=== PATIENT | male | born 1950 | race Caucasian/White ===

== ENCOUNTER 2017-09-11 16:43 | Inpatient (IN) | payer MEDICARE, OTHER ==
[~2017-09-11] VITALS: Ht 180.3 cm; Wt 100.5 kg
[2017-09-11 19:07] LABS: BASOPHILS % (AUTO) 0.2 % (0-1); EOSINOPHILS # (AUTO) 0.2 X10'3 (0-0.9); EOSINOPHILS % (AUTO) 1.6 % (0-6); HEMATOCRIT 39.1 % (42.0-52.0); HEMOGLOBIN 12.3 g/dl (14.0-17.9); LYMPHOCYTES # (AUTO) 0.8 X10'3 (1.1-4.8); LYMPHOCYTES % (AUTO) 6.5 % (21-51); MEAN CORPUSCULAR HEMOGLOBIN 28.1 PG (27.0-31.0); MEAN CORPUSCULAR HGB CONC 31.4 % (33.0-36.5); MEAN CORPUSCULAR VOLUME 89.7 FL (78-98); MEAN PLATELET VOLUME 8.4 FL (7.4-10.4); MONOCYTES # (AUTO) 1.1 X10'3 (0-0.9); MONOCYTES % (AUTO) 8.8 % (2-12); NEUTROPHILS % (AUTO) 82.9 % (42-75); PLATELET COUNT 259 X10'3 (140-440); RED BLOOD COUNT 4.36 X10'6 (4.70-6.10); RED CELL DISTRIBUTION WIDTH 15.6 % (11.5-14.5)
[2017-09-11 19:17] LABS: INR 1.4 INR; PARTIAL THROMBOPLASTIN TIME 27 SECONDS (22-32); PROTHROMBIN TIME 13.9 SECONDS (9.0-12.0)
[2017-09-11 19:25] LABS: ALANINE AMINOTRANSFERASE 22 U/L (12-78); ALBUMIN 3.2 G/DL (3.4-5.0); ALBUMIN/GLOBULIN RATIO 0.8 (1.1-1.5); ALKALINE PHOSPHATASE 79 IU/L (46-116); ANION GAP 5 (8-16); ASPARTATE AMINO TRANSFERASE 20 U/L (10-37); BILIRUBIN,TOTAL 1.3 MG/DL (0.1-1.0); BLOOD UREA NITROGEN 48 MG/DL (7-18); BUN/CREATININE RATIO 35.6 (5.4-32.0); CALCIUM 9.5 MG/DL (8.5-10.1); CHLORIDE 98 MMOL/L (99-107); CREATININE 1.35 MG/DL (0.60-1.10); GLUCOSE 149 MG/DL (70-104); POTASSIUM 4.2 MMOL/L (3.5-5.1); SODIUM 143 MMOL/L (135-145); TOTAL CARBON DIOXIDE 39.8 MMOL/L (24-32); TOTAL PROTEIN 7.1 G/DL (6.4-8.2); eGFR 53 ML/MIN
[2017-09-11] MEDS ORDERED: furosemide 40mg/4ml inj IV ONE (20:05)
[2017-09-11] MEDS ORDERED: methylPREDNISolone sod succ 125mg/2ml vial IV ONE (20:05)
[2017-09-11] MEDS ORDERED: ipratropium/albuterol 3ml nebule NEB ONE (20:05)
[2017-09-11 20:49] LABS: CLARITY,URINE CLEAR (Clear); COLOR,URINE STRAW (Yellow); GLUCOSE, URINE NEGATIVE (Neg); KETONES,URINE NEGATIVE (Neg); LEUKOCYTE ESTERASE ,URINE NEGATIVE (Neg); NITRITES, URINE NEGATIVE (Neg); OCCULT BLOOD,URINE TRACE-INTACT (Neg); PROTEIN,URINE NEGATIVE (Neg); UROBILINOGEN,URINE 0.2 E.U/dL (0.2-1.0)
[2017-09-11 20:51] LABS: UA COLLECTION TYPE CLN CATCH MIDSTREAM
[2017-09-11 20:57] LABS: BACTERIA,URINE NONE SEEN /HPF (Neg); MUCUS STRANDS NONE SEEN /LPF (Neg); RBC,URINE 0-2 /HPF (0-2); SQUAMOUS EPITHELIAL CELL,UR NONE SEEN /LPF (FEW); WBC,URINE NONE SEEN /HPF (0-4)
[2017-09-11] MEDS ORDERED: furosemide 10 MG/1 ML 10ml inj IV ONE (21:00)
[2017-09-11] MEDS ORDERED: temazepam 15mg capsule PO PRN (21:00)
[2017-09-11] MEDS ORDERED: sodium phosphate inj. 30 MMOL in dextrose 5%-water 250 ML IV PRN (21:50)
[2017-09-11] MEDS ORDERED: HYDROmorphone 1 mg/ml syringe IV PRN ×2 (21:50)
[2017-09-11] MEDS ORDERED: sodium phosphate inj. 15 MMOL in dextrose 5%-water 150 ML IV PRN (21:50)
[2017-09-11] MEDS ORDERED: mag hydrox/Alum hydrox/simeth 30ml oral suspension PO PRN (21:50)
[2017-09-11] MEDS ORDERED: acetaminophen 325mg tablet PO PRN (21:50)
[2017-09-11] MEDS ORDERED: Neutra Phos packet PO PRN (21:50)
[2017-09-11] MEDS ORDERED: dextrose 50%-water 50ml dispensing syringe IV PRN ×2 (21:50)
[2017-09-11] MEDS ORDERED: diphenhydrAMINE 25mg capsule PO PRN (21:50)
[2017-09-11] MEDS ORDERED: MESSAGE TO PHARMACY PO ONE (21:50)
[2017-09-11] MEDS ORDERED: acetaminophen 650mg rectal suppository RC PRN (21:50)
[2017-09-11] MEDS ORDERED: metoclopramide 5 mg/ml inj IV PRN (21:50)
[2017-09-11] MEDS ORDERED: magnesium hydroxide 30ml (MOM) UD suspension PO PRN (21:50)
[2017-09-11] MEDS ORDERED: magnesium 4gm in 100ml NS 100 ML IV PRN (21:50)
[2017-09-11] MEDS ORDERED: diphenhydrAMINE 50 mg/ml inj IV PRN (21:50)
[2017-09-11] MEDS ORDERED: HYDROcodone/acetaminophen 5mg/325mg tablet PO PRN (21:50)
[2017-09-11] MEDS ORDERED: dextrose ORAL solution 15 GM/59 ML bottle PO PRN (21:50)
[2017-09-11] MEDS ORDERED: magnesium 2GM in 50ml NS 50 ML IV PRN (21:50)
[2017-09-11] MEDS ORDERED: glucagon, human recombinant 1mg kit SUBCUT PRN (21:50)
[2017-09-11 22:46] LABS: HEMOGLOBIN A1C 6.6 % (4.5-6.2)
[2017-09-11 23:03] LABS: ALBUMIN 3.3 G/DL (3.4-5.0); ANION GAP 6 (8-16); BLOOD UREA NITROGEN 47 MG/DL (7-18); BUN/CREATININE RATIO 37.6 (5.4-32.0); CALCIUM 9.5 MG/DL (8.5-10.1); CHLORIDE 98 MMOL/L (99-107); CREATININE 1.25 MG/DL (0.60-1.10); GLUCOSE 138 MG/DL (70-104); PHOSPHORUS 3.3 MG/DL (2.3-4.5); SODIUM 143 MMOL/L (135-145); TOTAL CARBON DIOXIDE 39.5 MMOL/L (24-32); eGFR 58 ML/MIN
[2017-09-12] MEDS: heparin, porcine 5000 units/ml vial SQ SCH ×4 (00:19→23:40)
[2017-09-12 05:15] LABS: BASOPHILS % (AUTO) 0 % (0-1); EOSINOPHILS # (AUTO) 0.1 X10'3 (0-0.9); EOSINOPHILS % (AUTO) 0.9 % (0-6); HEMATOCRIT 39.3 % (42.0-52.0); HEMOGLOBIN 12.2 g/dl (14.0-17.9); LYMPHOCYTES # (AUTO) 0.3 X10'3 (1.1-4.8); LYMPHOCYTES % (AUTO) 2.7 % (21-51); MEAN CORPUSCULAR HEMOGLOBIN 27.9 PG (27.0-31.0); MEAN CORPUSCULAR HGB CONC 31.1 % (33.0-36.5); MEAN CORPUSCULAR VOLUME 89.6 FL (78-98); MEAN PLATELET VOLUME 8.9 FL (7.4-10.4); MONOCYTES % (AUTO) 0.3 % (2-12); NEUTROPHILS # (AUTO) 10.9 X10'3 (1.8-7.7); NEUTROPHILS % (AUTO) 96.1 % (42-75); PLATELET COUNT 250 X10'3 (140-440); RED BLOOD COUNT 4.39 X10'6 (4.70-6.10); RED CELL DISTRIBUTION WIDTH 14.8 % (11.5-14.5); WHITE BLOOD COUNT 11.3 X10'3 (4.5-11.0)
[2017-09-12 05:47] LABS: ALANINE AMINOTRANSFERASE 14 U/L (12-78); ALBUMIN 3.1 G/DL (3.4-5.0); ALBUMIN/GLOBULIN RATIO 0.8 (1.1-1.5); ALKALINE PHOSPHATASE 75 IU/L (46-116); ANION GAP 7 (8-16); ASPARTATE AMINO TRANSFERASE 25 U/L (10-37); BILIRUBIN,TOTAL 1.3 MG/DL (0.1-1.0); BLOOD UREA NITROGEN 45 MG/DL (7-18); BUN/CREATININE RATIO 35.7 (5.4-32.0); CALCIUM 9.3 MG/DL (8.5-10.1); CHLORIDE 97 MMOL/L (99-107); CREATININE 1.26 MG/DL (0.60-1.10); GLUCOSE 190 MG/DL (70-104); MAGNESIUM 1.6 MG/DL (1.5-2.4); PHOSPHORUS 4.1 MG/DL (2.3-4.5); POTASSIUM 4.1 MMOL/L (3.5-5.1); SODIUM 141 MMOL/L (135-145); TOTAL CARBON DIOXIDE 36.7 MMOL/L (24-32); TOTAL PROTEIN 7.1 G/DL (6.4-8.2); TROPONIN I < 0.04 NG/ML (0.0-0.05); eGFR 57 ML/MIN
[2017-09-12] MEDS: Insulin Detemir pen SQ SCH ×2 (08:34→21:17)
[2017-09-12] MEDS: lactobacillus rhamnosus 10,000 MMU CELLS/CAPSULE PO SCH ×2 (08:35→17:56)
[2017-09-12] MEDS: pantoprazole 40mg Tablet.DR PO SCH (08:35)
[2017-09-12] MEDS: docusate sod 100mg capsule PO SCH ×2 (08:35→19:34)
[2017-09-12] MEDS: methylPREDNISolone sod succ 125mg/2ml vial IV SCH ×2 (08:36→19:34)
[2017-09-12] MEDS: levoFLOXACIN-Levaquin 750MG/D5 150 ML IV SCH (08:38)
[2017-09-12 10:16] VITALS: BP 126/64
[2017-09-12 13:13] LABS: ALBUMIN 3.1 G/DL (3.4-5.0); ANION GAP 12 (8-16); BLOOD UREA NITROGEN 57 MG/DL (7-18); CALCIUM 9.2 MG/DL (8.5-10.1); CHLORIDE 93 MMOL/L (99-107); CREATININE 1.54 MG/DL (0.60-1.10); GLUCOSE 449 MG/DL (70-104); PHOSPHORUS 4.5 MG/DL (2.3-4.5); POTASSIUM 4.9 MMOL/L (3.5-5.1); SODIUM 139 MMOL/L (135-145); TOTAL CARBON DIOXIDE 34.5 MMOL/L (24-32); eGFR 46 ML/MIN
[2017-09-12] MEDS: insulin Lispro (HumaLOG) vial - multi-dose SQ SCH ×3 (13:16→21:20)
[2017-09-12] MEDS ORDERED: PRED5TAB PO (16:04)
[2017-09-12] MEDS ORDERED: AMLO5TAB16 PO (16:04)
[2017-09-12] MEDS ORDERED: TACR1CAP PO (16:04)
[2017-09-12] MEDS ORDERED: INSU100V13 (16:04)
[2017-09-12] MEDS ORDERED: LANTUS SQ (16:04)
[2017-09-12] MEDS ORDERED: LEVO75TA7 PO (16:04)
[2017-09-12] MEDS ORDERED: ISOS30TA9 PO (16:04)
[2017-09-12] MEDS ORDERED: LOVA40TA2 PO (16:04)
[2017-09-12] MEDS ORDERED: METO50TA16 PO (16:04)
[2017-09-12] MEDS ORDERED: OMEP-50 PO (16:04)
[2017-09-12] MEDS ORDERED: CHLO25TA10 PO (16:04)
[2017-09-12] MEDS ORDERED: ASPI81TA52 PO (16:04)
[2017-09-12] MEDS ORDERED: MYCO360T PO (16:04)
[2017-09-12 20:00] VITALS: BP 128/84
[2017-09-12 20:30] LABS: ALBUMIN 3.1 G/DL (3.4-5.0); ANION GAP 11 (8-16); BLOOD UREA NITROGEN 64 MG/DL (7-18); BUN/CREATININE RATIO 36.4 (5.4-32.0); CHLORIDE 93 MMOL/L (99-107); CREATININE 1.76 MG/DL (0.60-1.10); PHOSPHORUS 3.3 MG/DL (2.3-4.5); POTASSIUM 4.4 MMOL/L (3.5-5.1); SODIUM 138 MMOL/L (135-145); TOTAL CARBON DIOXIDE 34.3 MMOL/L (24-32); eGFR 39 ML/MIN
[2017-09-12 20:33] LABS: GLUCOSE 518 MG/DL (70-104)
[2017-09-12 20:34] LABS: CALCIUM 9.2 MG/DL (8.5-10.1)
[2017-09-13] VITALS: BP 108/75
[2017-09-13 06:02] LABS: BASOPHILS % (AUTO) 0 % (0-1); EOSINOPHILS # (AUTO) 0.1 X10'3 (0-0.9); EOSINOPHILS % (AUTO) 1.2 % (0-6); HEMATOCRIT 36.9 % (42.0-52.0); HEMOGLOBIN 11.8 g/dl (14.0-17.9); LYMPHOCYTES # (AUTO) 0.4 X10'3 (1.1-4.8); MEAN CORPUSCULAR HGB CONC 31.9 % (33.0-36.5); MEAN CORPUSCULAR VOLUME 87.8 FL (78-98); MEAN PLATELET VOLUME 9.2 FL (7.4-10.4); MONOCYTES # (AUTO) 0.4 X10'3 (0-0.9); MONOCYTES % (AUTO) 4.1 % (2-12); NEUTROPHILS # (AUTO) 9.2 X10'3 (1.8-7.7); NEUTROPHILS % (AUTO) 90.7 % (42-75); PLATELET COUNT 277 X10'3 (140-440); WHITE BLOOD COUNT 10.1 X10'3 (4.5-11.0)
[2017-09-13 06:32] LABS: ANION GAP 4 (8-16); BLOOD UREA NITROGEN 66 MG/DL (7-18); BUN/CREATININE RATIO 40.2 (5.4-32.0); CALCIUM 9.1 MG/DL (8.5-10.1); CHLORIDE 95 MMOL/L (99-107); CREATININE 1.64 MG/DL (0.60-1.10); GLUCOSE 352 MG/DL (70-104); MAGNESIUM 1.8 MG/DL (1.5-2.4); PHOSPHORUS 3.2 MG/DL (2.3-4.5); POTASSIUM 3.8 MMOL/L (3.5-5.1); SODIUM 138 MMOL/L (135-145); TOTAL CARBON DIOXIDE 39.2 MMOL/L (24-32); eGFR 42 ML/MIN
[2017-09-13 06:33] LABS: ALANINE AMINOTRANSFERASE 15 U/L (12-78); ALBUMIN 3.2 G/DL (3.4-5.0); ALBUMIN/GLOBULIN RATIO 0.8 (1.1-1.5); ALKALINE PHOSPHATASE 76 IU/L (46-116); ASPARTATE AMINO TRANSFERASE 19 U/L (10-37); BILIRUBIN,TOTAL 1.1 MG/DL (0.1-1.0); CHOL/HDL RATIO 3.5 (0.00-4.99); CHOLESTEROL 143 MG/DL (0-200); HDL CHOLESTEROL 41 MG/DL (35-60); LDL CHOLESTEROL 96 MG/DL (50-100); TOTAL PROTEIN 7.1 G/DL (6.4-8.2); TRIGLYCERIDES 45 MG/DL (20-135)
[2017-09-13] MEDS: levoFLOXACIN-Levaquin 750MG/D5 150 ML IV SCH (07:33)
[2017-09-13] MEDS: metoprolol tartrate 50mg tablet PO SCH ×2 (07:34→19:16)
[2017-09-13] MEDS: isosorbide dinitrate 30mg tablet PO SCH (07:34)
[2017-09-13] MEDS: docusate sod 100mg capsule PO SCH ×2 (07:35→19:16)
[2017-09-13] MEDS: aspirin 81mg tablet.DR PO SCH (07:35)
[2017-09-13] MEDS: levoTHYROXINE 75mcg tablet PO SCH (07:35)
[2017-09-13] MEDS: pantoprazole 40mg Tablet.DR PO SCH (07:35)
[2017-09-13] MEDS: amLODIPine 5mg tablet PO SCH ×2 (07:36→19:16)
[2017-09-13] MEDS: lactobacillus rhamnosus 10,000 MMU CELLS/CAPSULE PO SCH (07:37)
[2017-09-13] MEDS: atorvastatin 10mg tablet PO SCH (07:37)
[2017-09-13] MEDS: heparin, porcine 5000 units/ml vial SQ SCH ×2 (07:37→17:44)
[2017-09-13] MEDS: methylPREDNISolone sod succ 125mg/2ml vial IV SCH ×2 (07:38→19:15)
[2017-09-13 08:00] VITALS: BP 147/69
[2017-09-13] MEDS: insulin Lispro (HumaLOG) vial - multi-dose SQ SCH ×4 (09:20→21:51)
[2017-09-13] MEDS: mycophenolate sod SR tablet 180 MG TABLET.DR PO SCH (09:46)
[2017-09-13] MEDS: tacrolimus anhydrous 1mg capsule PO SCH (09:46)
[2017-09-13] MEDS: chlorthalidone 25mg tablet PO SCH (09:47)
[2017-09-13 12:00] VITALS: BP 137/83
[2017-09-13 20:00] VITALS: BP 151/74
[2017-09-13] MEDS ORDERED: Insulin Detemir pen SQ ONE (21:40)
[2017-09-14] VITALS (10 sets, daily range): BP systolic 127–154; BP diastolic 62–96
[2017-09-14] MEDS ORDERED: LORazepam 2 mg/ml vial IV ONE (00:20)
[2017-09-14] MEDS: heparin, porcine 5000 units/ml vial SQ SCH ×4 (00:40→23:13)
[2017-09-14] MEDS: LORazepam 2 mg/ml vial IV PRN ×2 (05:57→14:37)
[2017-09-14 06:06] LABS: BASOPHILS % (AUTO) 0 % (0-1); EOSINOPHILS # (AUTO) 0.2 X10'3 (0-0.9); EOSINOPHILS % (AUTO) 1.6 % (0-6); HEMATOCRIT 37.4 % (42.0-52.0); HEMOGLOBIN 11.8 g/dl (14.0-17.9); LYMPHOCYTES # (AUTO) 0.3 X10'3 (1.1-4.8); LYMPHOCYTES % (AUTO) 2.2 % (21-51); MEAN CORPUSCULAR HEMOGLOBIN 27.9 PG (27.0-31.0); MEAN CORPUSCULAR HGB CONC 31.4 % (33.0-36.5); MEAN CORPUSCULAR VOLUME 88.9 FL (78-98); MEAN PLATELET VOLUME 8.6 FL (7.4-10.4); MONOCYTES # (AUTO) 0.6 X10'3 (0-0.9); MONOCYTES % (AUTO) 4.8 % (2-12); NEUTROPHILS # (AUTO) 11.2 X10'3 (1.8-7.7); NEUTROPHILS % (AUTO) 91.4 % (42-75); PLATELET COUNT 291 X10'3 (140-440); RED BLOOD COUNT 4.21 X10'6 (4.70-6.10); RED CELL DISTRIBUTION WIDTH 15.2 % (11.5-14.5); WHITE BLOOD COUNT 12.2 X10'3 (4.5-11.0)
[2017-09-14 06:29] LABS: ALANINE AMINOTRANSFERASE 25 U/L (12-78); ALBUMIN 3.3 G/DL (3.4-5.0); ALBUMIN/GLOBULIN RATIO 0.8 (1.1-1.5); ALKALINE PHOSPHATASE 72 IU/L (46-116); ANION GAP 8 (8-16); ASPARTATE AMINO TRANSFERASE 29 U/L (10-37); BILIRUBIN,TOTAL 0.9 MG/DL (0.1-1.0); BLOOD UREA NITROGEN 67 MG/DL (7-18); BUN/CREATININE RATIO 39.2 (5.4-32.0); CALCIUM 9.3 MG/DL (8.5-10.1); CHLORIDE 98 MMOL/L (99-107); CREATININE 1.71 MG/DL (0.60-1.10); GLUCOSE 212 MG/DL (70-104); PHOSPHORUS 4.1 MG/DL (2.3-4.5); POTASSIUM 3.9 MMOL/L (3.5-5.1); SODIUM 144 MMOL/L (135-145); TOTAL CARBON DIOXIDE 37.8 MMOL/L (24-32); TOTAL PROTEIN 7.2 G/DL (6.4-8.2); eGFR 40 ML/MIN
[2017-09-14] MEDS: levoFLOXACIN-Levaquin 750MG/D5 150 ML IV SCH (08:00)
[2017-09-14] MEDS: insulin Lispro (HumaLOG) vial - multi-dose SQ SCH ×3 (10:04→21:47)
[2017-09-14] MEDS: docusate sod 100mg capsule PO SCH ×2 (10:31→20:00)
[2017-09-14] MEDS: isosorbide dinitrate 30mg tablet PO SCH (10:31)
[2017-09-14] MEDS: atorvastatin 10mg tablet PO SCH (10:31)
[2017-09-14] MEDS: tacrolimus anhydrous 1mg capsule PO SCH (10:32)
[2017-09-14] MEDS: amLODIPine 5mg tablet PO SCH ×2 (10:32→20:00)
[2017-09-14] MEDS: LACTOBACILLUS RHAMNOSUS GG 15 billion unit sprinkle caps PO SCH (10:34)
[2017-09-14] MEDS: aspirin 81mg tablet.DR PO SCH (10:34)
[2017-09-14] MEDS: metoprolol tartrate 50mg tablet PO SCH ×2 (10:35→20:00)
[2017-09-14] MEDS: levoTHYROXINE 75mcg tablet PO SCH (10:35)
[2017-09-14] MEDS: pantoprazole 40mg Tablet.DR PO SCH (10:35)
[2017-09-14] MEDS: mycophenolate sod SR tablet 180 MG TABLET.DR PO SCH (10:49)
[2017-09-14] MEDS: chlorthalidone 25mg tablet PO SCH (10:49)
[2017-09-14] MEDS: methylPREDNISolone sod succ 125mg/2ml vial IV SCH ×2 (10:50→19:26)
[2017-09-14 12:56] LABS: ABG BASE EXCESS 12.4 mmol/L (-2.0-3.0); ABG HCO3 40.4 mmol/L (22.0-26.0); ABG PCO2 (T) 71.3 mmHg (35.0-48.0); ABG PH (T) 7.371 (7.350-7.450); ABG PO2 (T) 92.9 mmHg (83-108); FCOHb 0.3 % (0.5-1.5); FLOW 15 L/min; FMetHb 0.1 % (0.3-1.12); FO2Hb 96.6 % (94-100)
[2017-09-14] MEDS ORDERED: furosemide 40mg/4ml inj IV ONE (13:45)
[2017-09-14] MEDS: furosemide 20 MG/2 ML vial IV SCH (19:26)
[2017-09-14 20:36] LABS: ABG BASE EXCESS 15.7 mmol/L (-2.0-3.0); ABG OXYGEN SATURATION 92.9 % (95-98); ABG PH (T) 7.436 (7.350-7.450); ALLEN'S TEST Positive; FCOHb 0.1 % (0.5-1.5); FMetHb 0.1 % (0.3-1.12); FO2Hb 92.7 % (94-100); MINUTE VOLUME 21 L/min; PATIENT TEMPERATURE 36.7; RESPIRATORY RATE 18 b/min; RESPIRATORY RATE (OBSERVED) 19 b/min; TOTAL HEMOGLOBIN 12.4 G/dl (14.0-18.0)
[2017-09-14] MEDS ORDERED: Insulin Detemir pen SQ SCH (21:15)
[2017-09-14] MEDS: Insulin Detemir pen SQ SCH (21:44)
[2017-09-15] VITALS (11 sets, daily range): BP systolic 118–147; BP diastolic 56–94
[2017-09-15 05:45] LABS: BASOPHILS % (AUTO) 0 % (0-1); EOSINOPHILS # (AUTO) 0.1 X10'3 (0-0.9); EOSINOPHILS % (AUTO) 1.8 % (0-6); HEMATOCRIT 36.6 % (42.0-52.0); HEMOGLOBIN 11.4 g/dl (14.0-17.9); LYMPHOCYTES # (AUTO) 0.3 X10'3 (1.1-4.8); LYMPHOCYTES % (AUTO) 3.7 % (21-51); MEAN CORPUSCULAR HEMOGLOBIN 27.6 PG (27.0-31.0); MEAN CORPUSCULAR HGB CONC 31.1 % (33.0-36.5); MEAN CORPUSCULAR VOLUME 88.7 FL (78-98); MEAN PLATELET VOLUME 8.4 FL (7.4-10.4); MONOCYTES # (AUTO) 0.4 X10'3 (0-0.9); MONOCYTES % (AUTO) 4.6 % (2-12); NEUTROPHILS # (AUTO) 7.4 X10'3 (1.8-7.7); NEUTROPHILS % (AUTO) 89.9 % (42-75); PLATELET COUNT 270 X10'3 (140-440); RED BLOOD COUNT 4.12 X10'6 (4.70-6.10); RED CELL DISTRIBUTION WIDTH 15.2 % (11.5-14.5); WHITE BLOOD COUNT 8.3 X10'3 (4.5-11.0)
[2017-09-15 06:23] LABS: ALANINE AMINOTRANSFERASE 23 U/L (12-78); ALBUMIN/GLOBULIN RATIO 0.9 (1.1-1.5); ALKALINE PHOSPHATASE 63 IU/L (46-116); ANION GAP 5 (8-16); ASPARTATE AMINO TRANSFERASE 26 U/L (10-37); BLOOD UREA NITROGEN 57 MG/DL (7-18); BUN/CREATININE RATIO 38.3 (5.4-32.0); CHLORIDE 98 MMOL/L (99-107); CREATININE 1.49 MG/DL (0.60-1.10); GLUCOSE 213 MG/DL (70-104); POTASSIUM 3.4 MMOL/L (3.5-5.1); SODIUM 146 MMOL/L (135-145); TOTAL PROTEIN 6.5 G/DL (6.4-8.2); eGFR 47 ML/MIN
[2017-09-15] MEDS: methylPREDNISolone sod succ 125mg/2ml vial IV SCH ×2 (09:42→19:07)
[2017-09-15] MEDS: furosemide 20 MG/2 ML vial IV SCH ×2 (09:42→20:54)
[2017-09-15] MEDS: LACTOBACILLUS RHAMNOSUS GG 15 billion unit sprinkle caps PO SCH (09:43)
[2017-09-15] MEDS: metoprolol tartrate 50mg tablet PO SCH ×2 (09:43→19:07)
[2017-09-15] MEDS: atorvastatin 10mg tablet PO SCH (09:43)
[2017-09-15] MEDS: aspirin 81mg tablet.DR PO SCH (09:43)
[2017-09-15] MEDS: isosorbide dinitrate 30mg tablet PO SCH (09:43)
[2017-09-15] MEDS: chlorthalidone 25mg tablet PO SCH (09:44)
[2017-09-15] MEDS: amLODIPine 5mg tablet PO SCH ×2 (09:44→19:07)
[2017-09-15] MEDS: pantoprazole 40mg Tablet.DR PO SCH (09:44)
[2017-09-15] MEDS: docusate sod 100mg capsule PO SCH ×2 (09:44→19:07)
[2017-09-15] MEDS: levoTHYROXINE 75mcg tablet PO SCH (09:44)
[2017-09-15] MEDS: heparin, porcine 5000 units/ml vial SQ SCH ×2 (09:47→17:28)
[2017-09-15] MEDS: tacrolimus anhydrous 1mg capsule PO SCH (10:13)
[2017-09-15] MEDS: potassium Cl 20 mEq SR tablet PO PRN ×2 (10:13→18:08)
[2017-09-15] MEDS: levoFLOXACIN-Levaquin 750MG/D5 150 ML IV SCH (10:14)
[2017-09-15] MEDS: mycophenolate sod SR tablet 180 MG TABLET.DR PO SCH (10:14)
[2017-09-15] MEDS: insulin Lispro (HumaLOG) vial - multi-dose SQ SCH ×2 (12:38→18:27)
[2017-09-15] MEDS: Insulin Detemir pen SQ SCH (20:53)
[2017-09-15] MEDS ORDERED: Insulin Detemir pen SQ SCH ×2 (21:00)
[2017-09-16] MEDS: heparin, porcine 5000 units/ml vial SQ SCH ×4 (00:08→16:07)
[2017-09-16 03:00] VITALS: BP 140/59
[2017-09-16 06:00] VITALS: BP 141/81
[2017-09-16 06:10] LABS: BASOPHILS % (AUTO) 0 % (0-1); EOSINOPHILS # (AUTO) 0.2 X10'3 (0-0.9); HEMATOCRIT 38.7 % (42.0-52.0); HEMOGLOBIN 12.2 g/dl (14.0-17.9); LYMPHOCYTES # (AUTO) 0.4 X10'3 (1.1-4.8); LYMPHOCYTES % (AUTO) 3.1 % (21-51); MEAN CORPUSCULAR HEMOGLOBIN 27.7 PG (27.0-31.0); MEAN CORPUSCULAR HGB CONC 31.5 % (33.0-36.5); MEAN PLATELET VOLUME 8.6 FL (7.4-10.4); MONOCYTES # (AUTO) 0.4 X10'3 (0-0.9); MONOCYTES % (AUTO) 3.7 % (2-12); NEUTROPHILS # (AUTO) 10.8 X10'3 (1.8-7.7); NEUTROPHILS % (AUTO) 91.2 % (42-75); PLATELET COUNT 261 X10'3 (140-440); WHITE BLOOD COUNT 11.8 X10'3 (4.5-11.0)
[2017-09-16 06:46] LABS: ALANINE AMINOTRANSFERASE 26 U/L (12-78); ALBUMIN 2.9 G/DL (3.4-5.0); ALBUMIN/GLOBULIN RATIO 0.9 (1.1-1.5); ALKALINE PHOSPHATASE 64 IU/L (46-116); ASPARTATE AMINO TRANSFERASE 26 U/L (10-37); BILIRUBIN,TOTAL 1.1 MG/DL (0.1-1.0); BLOOD UREA NITROGEN 51 MG/DL (7-18); BUN/CREATININE RATIO 39.8 (5.4-32.0); CALCIUM 8.8 MG/DL (8.5-10.1); CHLORIDE 97 MMOL/L (99-107); CREATININE 1.28 MG/DL (0.60-1.10); GLUCOSE 153 MG/DL (70-104); POTASSIUM 3.6 MMOL/L (3.5-5.1); SODIUM 143 MMOL/L (135-145); TOTAL PROTEIN 6.3 G/DL (6.4-8.2); eGFR 56 ML/MIN
[2017-09-16 07:04] LABS: ANION GAP -1 (8-16)
[2017-09-16 07:06] LABS: TOTAL CARBON DIOXIDE 47.3 MMOL/L (24-32)
[2017-09-16] MEDS: metoprolol tartrate 50mg tablet PO SCH ×2 (07:50→19:51)
[2017-09-16] MEDS: LACTOBACILLUS RHAMNOSUS GG 15 billion unit sprinkle caps PO SCH (07:50)
[2017-09-16] MEDS: mycophenolate sod SR tablet 180 MG TABLET.DR PO SCH (07:50)
[2017-09-16] MEDS: pantoprazole 40mg Tablet.DR PO SCH (07:50)
[2017-09-16] MEDS: isosorbide dinitrate 30mg tablet PO SCH (07:50)
[2017-09-16] MEDS: methylPREDNISolone sod succ 125mg/2ml vial IV SCH (07:51)
[2017-09-16] MEDS: levoTHYROXINE 75mcg tablet PO SCH (07:51)
[2017-09-16] MEDS: amLODIPine 5mg tablet PO SCH ×2 (07:51→19:51)
[2017-09-16] MEDS: tacrolimus anhydrous 1mg capsule PO SCH (07:51)
[2017-09-16] MEDS: atorvastatin 10mg tablet PO SCH (07:51)
[2017-09-16] MEDS: levoFLOXACIN-Levaquin 750MG/D5 150 ML IV SCH (07:51)
[2017-09-16] MEDS: furosemide 20 MG/2 ML vial IV SCH (07:51)
[2017-09-16] MEDS: aspirin 81mg tablet.DR PO SCH (07:51)
[2017-09-16] MEDS: chlorthalidone 25mg tablet PO SCH (07:51)
[2017-09-16] MEDS: docusate sod 100mg capsule PO SCH ×2 (08:00→19:51)
[2017-09-16] MEDS: insulin Lispro (HumaLOG) vial - multi-dose SQ SCH ×4 (09:18→21:20)
[2017-09-16] MEDS: acetaZOLAMIDE 250mg tablet PO SCH ×2 (10:09→19:51)
[2017-09-16] MEDS ORDERED: levoFLOXACIN-Levaquin 750MG/D5 150 ML IV SCH (10:15)
[2017-09-16 11:00] VITALS: BP 126/55
[2017-09-16 11:06] LABS: ABG BASE EXCESS 18.4 mmol/L (-2.0-3.0); ABG HCO3 45.2 mmol/L (22.0-26.0); ABG PCO2 (T) 60.9 mmHg (35.0-48.0); ABG PH (T) 7.487 (7.350-7.450); ABG PO2 (T) 64.3 mmHg (83-108); FLOW 15 L/min; FMetHb 0.1 % (0.3-1.12); FO2Hb 93.9 % (94-100); PATIENT TEMPERATURE 36.5
[2017-09-16 11:07] LABS: CREATININE,URINE RANDOM 11.9 MG/DL
[2017-09-16] MEDS: furosemide 40mg/4ml inj IV SCH ×2 (12:30→21:10)
[2017-09-16 15:00] VITALS: BP 135/57
[2017-09-16 19:00] VITALS: BP 124/69
[2017-09-16] MEDS: methylPREDNISolone sod succ/PF 40mg inj. IV SCH (19:51)
[2017-09-16] MEDS: Insulin Detemir pen SQ SCH (21:15)
[2017-09-16 23:08] VITALS: BP 142/69
[2017-09-17] MEDS: heparin, porcine 5000 units/ml vial SQ SCH ×4 (00:32→23:21)
[2017-09-17 02:55] VITALS: BP 120/69
[2017-09-17 05:40] LABS: BASOPHILS % (AUTO) 0 % (0-1); EOSINOPHILS # (AUTO) 0.3 X10'3 (0-0.9); EOSINOPHILS % (AUTO) 2.1 % (0-6); HEMATOCRIT 42.3 % (42.0-52.0); HEMOGLOBIN 13.4 g/dl (14.0-17.9); LYMPHOCYTES # (AUTO) 0.4 X10'3 (1.1-4.8); LYMPHOCYTES % (AUTO) 2.7 % (21-51); MEAN CORPUSCULAR HEMOGLOBIN 27.9 PG (27.0-31.0); MEAN CORPUSCULAR HGB CONC 31.5 % (33.0-36.5); MEAN CORPUSCULAR VOLUME 88.4 FL (78-98); MEAN PLATELET VOLUME 8.8 FL (7.4-10.4); MONOCYTES % (AUTO) 6.2 % (2-12); NEUTROPHILS # (AUTO) 13.8 X10'3 (1.8-7.7); PLATELET COUNT 261 X10'3 (140-440); RED BLOOD COUNT 4.79 X10'6 (4.70-6.10); RED CELL DISTRIBUTION WIDTH 14.8 % (11.5-14.5); WHITE BLOOD COUNT 15.5 X10'3 (4.5-11.0)
[2017-09-17 06:00] VITALS: BP 124/69
[2017-09-17 06:14] LABS: ALBUMIN 2.9 G/DL (3.4-5.0); BLOOD UREA NITROGEN 53 MG/DL (7-18); BUN/CREATININE RATIO 34.4 (5.4-32.0); CALCIUM 8.7 MG/DL (8.5-10.1); CHLORIDE 92 MMOL/L (99-107); CREATININE 1.54 MG/DL (0.60-1.10); GLUCOSE 111 MG/DL (70-104); POTASSIUM 3.3 MMOL/L (3.5-5.1); SODIUM 142 MMOL/L (135-145); eGFR 46 ML/MIN
[2017-09-17 06:33] LABS: ANION GAP 1 (8-16)
[2017-09-17 06:45] LABS: TOTAL CARBON DIOXIDE 48.7 MMOL/L (24-32)
[2017-09-17] MEDS: docusate sod 100mg capsule PO SCH ×2 (08:00→20:21)
[2017-09-17] MEDS: tacrolimus anhydrous 1mg capsule PO SCH (08:51)
[2017-09-17] MEDS: methylPREDNISolone sod succ/PF 40mg inj. IV SCH ×2 (08:51→20:20)
[2017-09-17] MEDS: LACTOBACILLUS RHAMNOSUS GG 15 billion unit sprinkle caps PO SCH (08:51)
[2017-09-17] MEDS: pantoprazole 40mg Tablet.DR PO SCH (08:51)
[2017-09-17] MEDS: acetaZOLAMIDE 250mg tablet PO SCH ×2 (08:52→20:21)
[2017-09-17] MEDS: isosorbide dinitrate 30mg tablet PO SCH (08:52)
[2017-09-17] MEDS: levoTHYROXINE 75mcg tablet PO SCH (08:52)
[2017-09-17] MEDS: furosemide 40mg/4ml inj IV SCH ×3 (08:52→20:21)
[2017-09-17] MEDS: atorvastatin 10mg tablet PO SCH (08:52)
[2017-09-17] MEDS: mycophenolate sod SR tablet 180 MG TABLET.DR PO SCH (09:43)
[2017-09-17] MEDS: insulin Lispro (HumaLOG) vial - multi-dose SQ SCH ×4 (09:48→21:39)
[2017-09-17] MEDS: levoFLOXACIN-Levaquin 500mg/D5 100 ML IV SCH (10:14)
[2017-09-17 11:00] VITALS: BP 113/63
[2017-09-17] MEDS: metoprolol tartrate 50mg tablet PO SCH ×2 (12:02→20:21)
[2017-09-17] MEDS: chlorthalidone 25mg tablet PO SCH (12:02)
[2017-09-17] MEDS: amLODIPine 5mg tablet PO SCH ×2 (12:02→20:21)
[2017-09-17] MEDS: aspirin 81mg tablet.DR PO SCH (12:02)
[2017-09-17 15:00] VITALS: BP 131/71
[2017-09-17 19:00] VITALS: BP 112/83
[2017-09-17] MEDS: potassium Cl 20 mEq SR tablet PO PRN (20:21)
[2017-09-17] MEDS: Insulin Detemir pen SQ SCH (21:41)
[2017-09-17 23:15] VITALS: BP 122/62
[2017-09-18] MEDS: potassium Cl 20 mEq SR tablet PO PRN (00:20)
[2017-09-18 03:00] VITALS: BP 116/74
[2017-09-18 06:00] VITALS: BP 104/70
[2017-09-18] MEDS: acetaZOLAMIDE 250mg tablet PO SCH ×2 (07:28→21:29)
[2017-09-18] MEDS: methylPREDNISolone sod succ/PF 40mg inj. IV SCH (07:28)
[2017-09-18] MEDS: docusate sod 100mg capsule PO SCH ×2 (07:28→21:29)
[2017-09-18] MEDS: heparin, porcine 5000 units/ml vial SQ SCH ×2 (07:28→16:58)
[2017-09-18] MEDS: furosemide 40mg/4ml inj IV SCH ×3 (07:28→21:30)
[2017-09-18] MEDS: isosorbide dinitrate 30mg tablet PO SCH (07:29)
[2017-09-18] MEDS: chlorthalidone 25mg tablet PO SCH (07:29)
[2017-09-18] MEDS: aspirin 81mg tablet.DR PO SCH (07:29)
[2017-09-18] MEDS: pantoprazole 40mg Tablet.DR PO SCH (07:29)
[2017-09-18] MEDS: LACTOBACILLUS RHAMNOSUS GG 15 billion unit sprinkle caps PO SCH (07:29)
[2017-09-18] MEDS: levoTHYROXINE 75mcg tablet PO SCH (07:29)
[2017-09-18] MEDS: atorvastatin 10mg tablet PO SCH (07:30)
[2017-09-18] MEDS: amLODIPine 5mg tablet PO SCH ×2 (07:30→21:30)
[2017-09-18] MEDS: levoFLOXACIN-Levaquin 500mg/D5 100 ML IV SCH (07:30)
[2017-09-18] MEDS: metoprolol tartrate 50mg tablet PO SCH ×2 (07:30→21:29)
[2017-09-18] MEDS: mycophenolate sod SR tablet 180 MG TABLET.DR PO SCH (07:31)
[2017-09-18] MEDS: tacrolimus anhydrous 1mg capsule PO SCH (07:31)
[2017-09-18] MEDS: insulin Lispro (HumaLOG) vial - multi-dose SQ SCH ×3 (07:53→13:37)
[2017-09-18 09:03] LABS: BASOPHILS % (AUTO) 0 % (0-1); EOSINOPHILS % (AUTO) 0 % (0-6); HEMATOCRIT 42.5 % (42.0-52.0); HEMOGLOBIN 13.5 g/dl (14.0-17.9); LYMPHOCYTES # (AUTO) 0.4 X10'3 (1.1-4.8); LYMPHOCYTES % (AUTO) 2.4 % (21-51); MEAN CORPUSCULAR HEMOGLOBIN 27.9 PG (27.0-31.0); MEAN CORPUSCULAR HGB CONC 31.8 % (33.0-36.5); MEAN CORPUSCULAR VOLUME 87.6 FL (78-98); MEAN PLATELET VOLUME 9.9 FL (7.4-10.4); MONOCYTES # (AUTO) 0.5 X10'3 (0-0.9); MONOCYTES % (AUTO) 2.6 % (2-12); NEUTROPHILS # (AUTO) 16.3 X10'3 (1.8-7.7); PLATELET COUNT 201 X10'3 (140-440); RED BLOOD COUNT 4.85 X10'6 (4.70-6.10); WHITE BLOOD COUNT 17.2 X10'3 (4.5-11.0)
[2017-09-18 09:20] LABS: ALBUMIN 2.6 G/DL (3.4-5.0); ANION GAP 7 (8-16); BLOOD UREA NITROGEN 80 MG/DL (7-18); BUN/CREATININE RATIO 38.3 (5.4-32.0); CALCIUM 7.6 MG/DL (8.5-10.1); CHLORIDE 85 MMOL/L (99-107); CREATININE 2.09 MG/DL (0.60-1.10); POTASSIUM 3.9 MMOL/L (3.5-5.1); SODIUM 131 MMOL/L (135-145); TOTAL CARBON DIOXIDE 38.6 MMOL/L (24-32); eGFR 32 ML/MIN
[2017-09-18 09:32] LABS: GLUCOSE 664 MG/DL (70-104)
[2017-09-18 11:00] VITALS: BP 103/60
[2017-09-18 15:00] VITALS: BP 109/55
[2017-09-18] MEDS: dextrose ORAL solution 15 GM/59 ML bottle PO PRN (17:12)
[2017-09-18 19:00] VITALS: BP 104/60
[2017-09-18] MEDS: Insulin Detemir pen SQ SCH (21:35)
[2017-09-18 23:00] VITALS: BP 116/70
[2017-09-18] MEDS ORDERED: ipratropium/albuterol 3ml nebule NEB PRN (23:05)
[2017-09-19] VITALS (7 sets, daily range): BP systolic 93–130; BP diastolic 51–82
[2017-09-19] MEDS: heparin, porcine 5000 units/ml vial SQ SCH ×4 (00:29→23:59)
[2017-09-19 06:42] LABS: BASOPHILS # (AUTO) 0.1 X10'3 (0-0.2); BASOPHILS % (AUTO) 0.6 % (0-1); EOSINOPHILS % (AUTO) 0.1 % (0-6); HEMATOCRIT 46.9 % (42.0-52.0); HEMOGLOBIN 14.8 g/dl (14.0-17.9); LYMPHOCYTES % (AUTO) 4.9 % (21-51); MEAN CORPUSCULAR HEMOGLOBIN 27.6 PG (27.0-31.0); MEAN CORPUSCULAR HGB CONC 31.6 % (33.0-36.5); MEAN CORPUSCULAR VOLUME 87.2 FL (78-98); MEAN PLATELET VOLUME 10.4 FL (7.4-10.4); MONOCYTES # (AUTO) 1.6 X10'3 (0-0.9); MONOCYTES % (AUTO) 7.8 % (2-12); NEUTROPHILS # (AUTO) 17.6 X10'3 (1.8-7.7); NEUTROPHILS % (AUTO) 86.6 % (42-75); PLATELET COUNT 199 X10'3 (140-440); RED BLOOD COUNT 5.39 X10'6 (4.70-6.10); RED CELL DISTRIBUTION WIDTH 14.6 % (11.5-14.5); WHITE BLOOD COUNT 20.4 X10'3 (4.5-11.0)
[2017-09-19 07:05] LABS: ALBUMIN 2.9 G/DL (3.4-5.0); ANION GAP 8 (8-16); BLOOD UREA NITROGEN 89 MG/DL (7-18); BUN/CREATININE RATIO 44.1 (5.4-32.0); CALCIUM 8.5 MG/DL (8.5-10.1); CHLORIDE 88 MMOL/L (99-107); CREATININE 2.02 MG/DL (0.60-1.10); GLUCOSE 284 MG/DL (70-104); SODIUM 136 MMOL/L (135-145); eGFR 33 ML/MIN
[2017-09-19 07:20] LABS: POTASSIUM 2.8 MMOL/L (3.5-5.1)
[2017-09-19] MEDS ORDERED: potassium Cl 20 mEq SR tablet PO PRN ×2 (08:00)
[2017-09-19] MEDS ORDERED: potassium Cl 40MEQ/NS 500ml 500 ML IV PRN ×2 (08:00)
[2017-09-19] MEDS: LACTOBACILLUS RHAMNOSUS GG 15 billion unit sprinkle caps PO SCH (09:12)
[2017-09-19] MEDS: pantoprazole 40mg Tablet.DR PO SCH (09:12)
[2017-09-19] MEDS: levoTHYROXINE 75mcg tablet PO SCH (09:12)
[2017-09-19] MEDS: furosemide 40mg/4ml inj IV SCH (09:12)
[2017-09-19] MEDS: levoFLOXACIN-Levaquin 500mg/D5 100 ML IV SCH (09:12)
[2017-09-19] MEDS: docusate sod 100mg capsule PO SCH ×2 (09:13→20:11)
[2017-09-19] MEDS: chlorthalidone 25mg tablet PO SCH (09:13)
[2017-09-19] MEDS: mycophenolate sod SR tablet 180 MG TABLET.DR PO SCH (09:13)
[2017-09-19] MEDS: aspirin 81mg tablet.DR PO SCH (09:14)
[2017-09-19] MEDS: potassium Cl 20 mEq SR tablet PO PRN ×3 (09:14→20:12)
[2017-09-19] MEDS: acetaZOLAMIDE 250mg tablet PO SCH ×3 (09:14→22:08)
[2017-09-19] MEDS: amLODIPine 5mg tablet PO SCH ×2 (09:14→20:11)
[2017-09-19] MEDS: isosorbide dinitrate 30mg tablet PO SCH (09:15)
[2017-09-19] MEDS: atorvastatin 10mg tablet PO SCH (09:16)
[2017-09-19] MEDS: metoprolol tartrate 50mg tablet PO SCH (09:16)
[2017-09-19] MEDS: tacrolimus anhydrous 1mg capsule PO SCH (09:16)
[2017-09-19] MEDS: insulin Lispro (HumaLOG) vial - multi-dose SQ SCH ×3 (09:20→23:43)
[2017-09-19] MEDS: spironolactone 25 MG tablet PO SCH ×2 (13:25→22:09)
[2017-09-19] MEDS: predniSONE 5mg tablet PO SCH (13:25)
[2017-09-19 14:53] LABS: CREATININE 2.05 MG/DL (0.60-1.10); POTASSIUM 3.3 MMOL/L (3.5-5.1); eGFR 33 ML/MIN
[2017-09-19] MEDS: dextrose ORAL solution 15 GM/59 ML bottle PO PRN (17:04)
[2017-09-19] MEDS: Insulin Detemir pen SQ SCH (22:18)
[2017-09-20 02:00] VITALS: BP 121/89
[2017-09-20 05:30] VITALS: BP 115/68
[2017-09-20 06:24] LABS: MAGNESIUM 1.7 MG/DL (1.5-2.4); POTASSIUM 3.7 MMOL/L (3.5-5.1)
[2017-09-20] MEDS: pantoprazole 40mg Tablet.DR PO SCH (07:40)
[2017-09-20] MEDS: tacrolimus anhydrous 1mg capsule PO SCH (07:40)
[2017-09-20] MEDS: levoTHYROXINE 75mcg tablet PO SCH (07:40)
[2017-09-20] MEDS: docusate sod 100mg capsule PO SCH ×3 (07:40→21:57)
[2017-09-20] MEDS: atorvastatin 10mg tablet PO SCH (07:40)
[2017-09-20] MEDS: LACTOBACILLUS RHAMNOSUS GG 15 billion unit sprinkle caps PO SCH (07:40)
[2017-09-20] MEDS: predniSONE 5mg tablet PO SCH (07:40)
[2017-09-20] MEDS: aspirin 81mg tablet.DR PO SCH (07:40)
[2017-09-20] MEDS: isosorbide dinitrate 30mg tablet PO SCH (07:41)
[2017-09-20] MEDS: mycophenolate sod SR tablet 180 MG TABLET.DR PO SCH (07:41)
[2017-09-20] MEDS: acetaZOLAMIDE 250mg tablet PO SCH ×3 (07:41→21:56)
[2017-09-20] MEDS: levoFLOXACIN-Levaquin 500mg/D5 100 ML IV SCH (07:42)
[2017-09-20] MEDS: amLODIPine 5mg tablet PO SCH (07:42)
[2017-09-20] MEDS: spironolactone 25 MG tablet PO SCH ×4 (07:42→21:57)
[2017-09-20] MEDS: heparin, porcine 5000 units/ml vial SQ SCH (07:43)
[2017-09-20 09:15] LABS: ANION GAP 7 (8-16); BLOOD UREA NITROGEN 95 MG/DL (7-18); CALCIUM 8.7 MG/DL (8.5-10.1); CHLORIDE 90 MMOL/L (99-107); CREATININE 2.21 MG/DL (0.60-1.10); GLUCOSE 369 MG/DL (70-104); SODIUM 134 MMOL/L (135-145); TOTAL CARBON DIOXIDE 36.6 MMOL/L (24-32); eGFR 30 ML/MIN
[2017-09-20] MEDS: insulin Lispro (HumaLOG) vial - multi-dose SQ SCH ×2 (09:40→12:48)
[2017-09-20] MEDS: diltiazem CD 120mg capsule (once-daily) PO SCH (09:59)
[2017-09-20] MEDS: ondansetron/PF 4mg/2ml inj IV PRN ×2 (10:21→21:56)
[2017-09-20] MEDS ORDERED: rivaroxaban 15mg tablet PO SCH (10:40)
[2017-09-20 11:00] VITALS: BP 103/59
[2017-09-20 15:00] VITALS: BP 97/49
[2017-09-20] MEDS: normal saline 1000ml 1,000 ML IV SCH (15:37)
[2017-09-20 18:00] VITALS: BP 136/65
[2017-09-20] MEDS: Insulin Detemir pen SQ SCH (21:49)
[2017-09-20] MEDS: apixaban 5mg tablet PO SCH (21:57)
[2017-09-20 22:00] VITALS: BP 134/63
[2017-09-21] MEDS: normal saline 1000ml 1,000 ML IV SCH ×3 (00:28→19:40)
[2017-09-21 02:00] VITALS: BP 117/69
[2017-09-21 06:00] VITALS: BP 160/60
[2017-09-21 06:16] LABS: MAGNESIUM 1.6 MG/DL (1.5-2.4); POTASSIUM 3.8 MMOL/L (3.5-5.1)
[2017-09-21] MEDS ORDERED: magnesium 2GM in 50ml NS 50 ML IV ONE (06:40)
[2017-09-21] MEDS: acetaZOLAMIDE 250mg tablet PO SCH ×3 (07:24→21:09)
[2017-09-21] MEDS: diltiazem CD 120mg capsule (once-daily) PO SCH (07:25)
[2017-09-21] MEDS: spironolactone 25 MG tablet PO SCH ×3 (07:26→21:09)
[2017-09-21] MEDS: tacrolimus anhydrous 1mg capsule PO SCH (07:26)
[2017-09-21] MEDS: aspirin 81mg tablet.DR PO SCH (07:26)
[2017-09-21] MEDS: docusate sod 100mg capsule PO SCH ×2 (07:27→21:09)
[2017-09-21] MEDS: pantoprazole 40mg Tablet.DR PO SCH (07:27)
[2017-09-21] MEDS: isosorbide dinitrate 30mg tablet PO SCH (07:27)
[2017-09-21] MEDS: predniSONE 5mg tablet PO SCH (07:27)
[2017-09-21] MEDS: levoTHYROXINE 75mcg tablet PO SCH (07:27)
[2017-09-21] MEDS: atorvastatin 10mg tablet PO SCH (07:27)
[2017-09-21] MEDS: LACTOBACILLUS RHAMNOSUS GG 15 billion unit sprinkle caps PO SCH (07:27)
[2017-09-21] MEDS: mycophenolate sod SR tablet 180 MG TABLET.DR PO SCH (07:28)
[2017-09-21] MEDS: apixaban 5mg tablet PO SCH (07:45)
[2017-09-21 08:17] LABS: A/G RATIO 0.9 (0.7-1.7); ALBUMIN 2.9 g/dL (2.9-4.4); GLOBULIN, TOTAL 3.2 g/dL (2.2-3.9); M-SPIKE Not Observed g/dL (Not Observed); PROTEIN, TOTAL, SERUM 6.1 g/dL (6.0-8.5)
[2017-09-21] MEDS: levoFLOXACIN-Levaquin 500mg/D5 100 ML IV SCH (09:43)
[2017-09-21] MEDS: insulin Lispro (HumaLOG) vial - multi-dose SQ SCH ×2 (09:47→13:04)
[2017-09-21 11:00] VITALS: BP 112/60
[2017-09-21 11:37] LABS: BASOPHILS # (AUTO) 0.1 X10'3 (0-0.2); BASOPHILS % (AUTO) 0.7 % (0-1); EOSINOPHILS # (AUTO) 0.3 X10'3 (0-0.9); EOSINOPHILS % (AUTO) 2.2 % (0-6); HEMATOCRIT 42.6 % (42.0-52.0); HEMOGLOBIN 13.6 g/dl (14.0-17.9); LYMPHOCYTES # (AUTO) 0.5 X10'3 (1.1-4.8); LYMPHOCYTES % (AUTO) 3.6 % (21-51); MEAN CORPUSCULAR HGB CONC 32.1 % (33.0-36.5); MEAN CORPUSCULAR VOLUME 87.3 FL (78-98); MEAN PLATELET VOLUME 11.1 FL (7.4-10.4); MONOCYTES # (AUTO) 1.5 X10'3 (0-0.9); MONOCYTES % (AUTO) 10.3 % (2-12); NEUTROPHILS # (AUTO) 11.9 X10'3 (1.8-7.7); NEUTROPHILS % (AUTO) 83.2 % (42-75); PLATELET COUNT 142 X10'3 (140-440); RED BLOOD COUNT 4.88 X10'6 (4.70-6.10); RED CELL DISTRIBUTION WIDTH 14.4 % (11.5-14.5); WHITE BLOOD COUNT 14.3 X10'3 (4.5-11.0)
[2017-09-21 12:27] LABS: LARGE PLATELETS FEW; PLATELET ESTIMATE NORMAL
[2017-09-21 15:00] VITALS: BP 115/58
[2017-09-21 16:10] LABS: ALANINE AMINOTRANSFERASE 30 U/L (12-78); ALBUMIN 2.6 G/DL (3.4-5.0); ALBUMIN/GLOBULIN RATIO 0.7 (1.1-1.5); ALKALINE PHOSPHATASE 69 IU/L (46-116); ANION GAP 4 (8-16); ASPARTATE AMINO TRANSFERASE 26 U/L (10-37); BILIRUBIN,TOTAL 1.3 MG/DL (0.1-1.0); BLOOD UREA NITROGEN 77 MG/DL (7-18); BUN/CREATININE RATIO 43.8 (5.4-32.0); CALCIUM 8.8 MG/DL (8.5-10.1); CHLORIDE 97 MMOL/L (99-107); CREATININE 1.76 MG/DL (0.60-1.10); GLUCOSE 160 MG/DL (70-104); POTASSIUM 3.8 MMOL/L (3.5-5.1); SODIUM 136 MMOL/L (135-145); TOTAL CARBON DIOXIDE 34.7 MMOL/L (24-32); TOTAL PROTEIN 6.2 G/DL (6.4-8.2); eGFR 39 ML/MIN
[2017-09-21 19:00] VITALS: BP 125/57
[2017-09-21] MEDS: diltiazem 30mg tablet PO ONE ×3 (19:39→21:19)
[2017-09-21 20:55] LABS: INR 1.2 INR; PROTHROMBIN TIME 12.2 SECONDS (9.0-12.0)
[2017-09-21] MEDS: Insulin Detemir pen SQ SCH (21:08)
[2017-09-21] MEDS: warfarin 3mg tablet PO SCH (21:12)
[2017-09-21] MEDS: HYDROcodone/acetaminophen 10/325mg tab PO PRN (21:18)
[2017-09-21 23:00] VITALS: BP 124/49
[2017-09-22 03:00] VITALS: BP 148/65
[2017-09-22] MEDS: normal saline 1000ml 1,000 ML IV SCH (05:28)
[2017-09-22 06:00] VITALS: BP 159/63
[2017-09-22 06:05] LABS: INR 1.2 INR; PROTHROMBIN TIME 12.2 SECONDS (9.0-12.0)
[2017-09-22 06:16] LABS: POTASSIUM 4.2 MMOL/L (3.5-5.1)
[2017-09-22] MEDS ORDERED: diltiazem 5mg/ml 5ml inj. IV ONE ×2 (06:55→07:06)
[2017-09-22 07:37] VITALS: BP 159/63
[2017-09-22] MEDS: acetaZOLAMIDE 250mg tablet PO SCH (07:44)
[2017-09-22] MEDS: HYDROcodone/acetaminophen 10/325mg tab PO PRN (07:44)
[2017-09-22] MEDS: warfarin 3mg tablet PO SCH (07:45)
[2017-09-22] MEDS: mycophenolate sod SR tablet 180 MG TABLET.DR PO SCH (07:46)
[2017-09-22] MEDS: docusate sod 100mg capsule PO SCH (07:46)
[2017-09-22] MEDS: aspirin 81mg tablet.DR PO SCH (07:46)
[2017-09-22] MEDS: tacrolimus anhydrous 1mg capsule PO SCH (07:46)
[2017-09-22] MEDS: pantoprazole 40mg Tablet.DR PO SCH (07:46)
[2017-09-22] MEDS: LACTOBACILLUS RHAMNOSUS GG 15 billion unit sprinkle caps PO SCH (07:46)
[2017-09-22] MEDS: predniSONE 5mg tablet PO SCH (07:46)
[2017-09-22] MEDS: levoTHYROXINE 75mcg tablet PO SCH (07:46)
[2017-09-22] MEDS: atorvastatin 10mg tablet PO SCH (07:46)
[2017-09-22] MEDS: spironolactone 25 MG tablet PO SCH (07:48)
[2017-09-22] MEDS ORDERED: diltiazem CD 180mg cap (once-daily) PO SCH (08:00)
[2017-09-22] MEDS ORDERED: levoFLOXACIN-Levaquin 250mg/D5 50 ML IV SCH (08:00)
[2017-09-22] MEDS ORDERED: LORazepam 2 mg/ml vial IV PRN (09:30)
== END 2017-09-22 16:15 | disposition expired | DRG 871 ==
LOC: ER 16:45 → ED HOLD 21:46 → EDBEDREQ 09-12 08:45 → SUR 3N 09-12 10:05 → CMPBEDREQ 09-12 19:32 → PCU 3S 09-14 17:19
PROVIDERS: ADMIT Family Medicine; ATTEND Family Medicine
PROC: 5A09357 Assistance with Respiratory Ventilation, Less than 24 Consecutive Hours, Continuous Positive Airway Pressure (ICD-10-PCS; principal; 2017-09-14)
PROC: 5A09357 Assistance with Respiratory Ventilation, Less than 24 Consecutive Hours, Continuous Positive Airway Pressure (ICD-10-PCS; 2017-09-15)
PROC: CT631ZZ Nonimaging Nuclear Medicine Assay of Kidneys, Ureters and Bladder using Technetium 99m (Tc-99m) (ICD-10-PCS; 2017-09-21)
DX: A41.9 Sepsis, unspecified organism (principal); I50.43 Acute on chronic combined systolic (congestive) and diastolic (congestive) heart failure; J96.01 Acute respiratory failure with hypoxia; G93.41 Metabolic encephalopathy; N17.9 Acute kidney failure, unspecified; J18.9 Pneumonia, unspecified organism; E27.40 Unspecified adrenocortical insufficiency; I08.1 Rheumatic disorders of both mitral and tricuspid valves; I13.0 Hypertensive heart and chronic kidney disease with heart failure and stage 1 through stage 4 chronic kidney disease, or unspecified chronic kidney disease; E11.22 Type 2 diabetes mellitus with diabetic chronic kidney disease; Z94.0 Kidney transplant status; J44.1 Chronic obstructive pulmonary disease with (acute) exacerbation; J44.0 Chronic obstructive pulmonary disease with (acute) lower respiratory infection; E11.65 Type 2 diabetes mellitus with hyperglycemia; I25.10 Atherosclerotic heart disease of native coronary artery without angina pectoris; C44.321 Squamous cell carcinoma of skin of nose; E03.9 Hypothyroidism, unspecified; E78.5 Hyperlipidemia, unspecified; I27.20 Pulmonary hypertension, unspecified; I48.2 Chronic atrial fibrillation; E87.6 Hypokalemia; I49.3 Ventricular premature depolarization; N18.9 Chronic kidney disease, unspecified; T38.0X5A Adverse effect of glucocorticoids and synthetic analogues, initial encounter; Z66 Do not resuscitate; Z51.5 Encounter for palliative care; Z95.5 Presence of coronary angioplasty implant and graft; Z88.8 Allergy status to other drugs, medicaments and biological substances; Y92.89 Other specified places as the place of occurrence of the external cause
CPT/HCPCS: 36415; 36600; 70450; 71045; 71046; 71250; 78707; 80048; 80053; 80061; 80069; 80197; 81001; 82565; 82570; 82803; 82948; 83036; 83605; 83735; 83880; 84100; 84132; 84133; 84145; 84155; 84165; 84300; 84484; 85018; 85025; 85610; 85730; 87040; 87070; 93005; 93306; 94640; 94660; 94668; 94760; 96374; 96375; 97110; 97162; 97530; 99285; A4315; A4649; A6212; A6213; A6446; A6449; A9562; J1200; J1644; J1940; J1956; J2060; J2270; J2405; J2765; J2920; J2930; J3475; J3490; J7030; J7507; J7512